=== PATIENT | male | born 2000 | race Caucasian/White ===

== ENCOUNTER 2021-01-19 13:22 | Outpatient (CLI) | payer BC ==
[2021-01-19] MEDS ORDERED: Iopamidol-370 76% 500 ML 1 ML ONE (14:41)
== END 2021-01-19 13:23 | disposition home or self-care (01) ==
LOC: BICCT 13:22
PROVIDERS: ATTEND Physician Assistant
DX: R59.0 Localized enlarged lymph nodes (principal)
CPT/HCPCS: 70491; Q9967

== ENCOUNTER 2021-02-23 10:03 | Outpatient (CLI) | payer BC | END 2021-02-23 10:04 | disposition home or self-care (01) | LOC: BICULT 10:03 | PROVIDERS: ATTEND Physician Assistant | DX: R79.89 Other specified abnormal findings of blood chemistry (principal) | CPT/HCPCS: 76705 ==

== ENCOUNTER 2021-03-05 12:44 | Day surgery (SDC) | payer BC ==
[2021-03-02 13:22] VITALS: BMI 20.2
[2021-03-05] MEDS ORDERED: Sodium Bicarbonate 2.5 MEQ/5 ML VIAL ONE (12:55)
[2021-03-05] MEDS ORDERED: Lidocaine 1% PF 5 ML VIAL ONE (12:55)
[2021-03-05 13:30] VITALS: BP 123/74; TEMP 98.5
== END 2021-03-05 13:30 | disposition home or self-care (01) ==
LOC: ULT 12:44
PROVIDERS: ATTEND Student in an Organized Health Care Education/Training Program
DX: R59.0 Localized enlarged lymph nodes (principal); Z53.8 Procedure and treatment not carried out for other reasons; Z79.899 Other long term (current) drug therapy
CPT/HCPCS: 76536